=== PATIENT | female | born 1995 | race Caucasian/White ===

== ENCOUNTER 2019-09-10 10:34 | Emergency (ER) | payer OTHER, SELFPAY ==
--- NOTE | ~2019-09-10 | XR_ITS ---
EXAMINATION: XR chest 1V portable INDICATION: Sore throat and fever TECHNIQUE: Portable AP chest at 1103 hours COMPARISON: None available FINDINGS: The lungs are free of acute opacities. There is no pleural effusion or pneumothorax. The ca rdiomediastinal silhouette is normal. The visualized osseous structures are unremarkable. IMPRESSION: 1. No acute cardiopulmonary abnormality. Reviewed, dictated and finalized at location A.
[2019-09-10 10:44] VITALS: BP 119/92; PULSE 132; RESP 19; TEMP 38.3; O2SAT 98
--- NOTE | 2019-09-10 10:45 | ED.FEVER ---
HPI - Fever General Chief Complaint: Fever Stated Complaint: Sore throat,fever Time Seen by Provider: 09/10/19 10:37 History of Present Illness HPI Narrative: Patient is a 24-year-old female who presents to the ER with complaint of fever for the last week. Is been associated with runny nose and intermittent cough. Sometimes she will have some chest discomfort when she coughs but is not persistent. No dyspnea. She has history of recurrent strep throat but has had a tonsillectomy. 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 No known sick contacts and certainly no known COVID-19 positive contacts. Symptoms have not been improving so she opted to come in to have further evaluation performed. Related Data Allergies Allergy/AdvReac Type Severity Reaction Status Date / Time iodine Allergy Mild Anaphylaxis Verified 09/10/19 10:48 Review of Systems Review of Systems: All systems reviewed & are unremarkable except as noted in HPI and below Constitutional: Constitutional: Reports chills, Reports fatigue and Reports fever(s) ENT: Reports sore throat Comments: Rhinorrhea Cardiovascular: Cardiovascular: Reports chest pain and Denies rapid heart rate Respiratory: Respiratory: Denies chest congestion, Reports cough, Denies dyspnea and Denies wheezing Gastrointestinal: Gastrointestinal: Denies abdominal pain, Denies nausea and Denies vomiting Genitourinary: Genitourinary: Denies hematuria, Denies nocturia and Denies dysuria PMFSH Past Medical History Medical History (Updated 09/10/19 @ 13:52 by Henry Acosta MD) Deviated septum No pertinent past medical history Surgical History Surgical History (Updated 09/10/19 @ 13:47 by Henry Acosta MD) No pertinent past surgical history Social History Social History (Updated 09/10/19 @ 13:47 by Henry Acosta MD) Tobacco type: e-cigarettes Gender identity (if verbalized by the patient): Female Exam Narrative: Exam Narrative: GENERAL: Fartigued-appearing, well-nourished, and in no acute distress. HEAD: Normocephalic, atraumatic. ENT: Mucous membranes moist. Uvula midline and nonedematous. Mild pharyngeal erythema. NECK: Supple. CHEST: Clear to auscultation. No respiratory distress. HEART: Tachycardic and regular. Normal peripheral pulses. ABDOMEN: Soft, nontender, nondistended. EXTREMITIES: Normal range of motion. No edema. SKIN: Warm, dry, no rash. NEURO: Alert and oriented x3. 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 No source of infection. Will send the COVID test. Patient where she should receive results in 24 hours and is not to go out into the community until she has been found to be negative. She is aware if she is positive she should senior living in place for the next 14 days. Additionally she has been educated that she should not be going out in public anyways until she is 7 days symptom-free in 3 days without fever. Vital Signs Vital signs: Vital Signs Temperature 100.9 F H 09/10/19 10:44 Pulse Rate 132 H 09/10/19 10:44 Respiratory Rate 19 09/10/19 10:44 Blood Pressure 119/92 H 09/10/19 10:44 Pulse Oximetry 98 09/10/19 10:44 Temperature 100.9 F H 09/10/19 10:44 Pulse Rate 99 09/10/19 12:29 Respiratory Rate 18 09/10/19 12:29 Blood Pressure 128/90 09/10/19 12:29 Pulse Oximetry 98 09/10/19 12:29 MDM - Fever Lab Data Result diagrams: 09/10/19 11:06 09/10/19 11:05 Labs: Lab Results 09/10/19 09/10/19 09/10/19 Range/Units 11:05 11:06 12:26 WBC 13.2 H (4.5-10.0) K/mm3 RBC 4.40 (4.2-5.4) M/mm3 Hgb 12.9 (12.0-15.0) g/dL Hct 37.9 (37.0-47.0) % MCV 86.1 (80-100) fl MCH 29.3 (26-34) pg MCHC 34.0 (32-36) g/dl RDW 12.2 (11.5-14.5) % Plt Count 245 (150-375) k/mm3 MPV 10.2 (7.4-10.4) fl Immature Gran % (Auto) 0.4 (0-0.5) % Neut % (Auto) 79.6 H (45.5-73.
[2019-09-10] MEDS: ACETAMINOPHEN 500 MG TABLET 1000 MG PO (11:08)
[2019-09-10] MEDS: SODIUM CHLORIDE 0.9% IV 1,000 ML 999 ML IV CONT (11:09)
[2019-09-10 11:12] VITALS: BP 118/80; PULSE 103; RESP 14; O2SAT 100
[2019-09-10 11:13] VITALS: O2SAT 100
[2019-09-10 11:16] LABS: Basophils Percent Auto 0.2 % (0.2-1.2); Eosinophils Percent Auto 0.2 % (0-4.4); Hematocrit 37.9 % (37.0-47.0); Hemoglobin 12.9 g/dL (12.0-15.0); Immature Granulocyte Absolute 0.05 K/mm3 (0.00-0.031); Immature Granulocyte Percent A 0.4 % (0-0.5); Lymphocytes Absolute Auto 1.65 K/mm3 (0.9-3.2); Lymphocytes Percent Auto 12.5 % (18.3-44.2); Mean Corpuscular Hemoglobin 29.3 pg (26-34); Mean Corpuscular Volume 86.1 fl (80-100); Mean Platelet Volume 10.2 fl (7.4-10.4); Monocytes Absolute Auto 0.9 K/mm3 (0.1-0.6); Monocytes Percent Auto 7.1 % (2.6-8.5); Neutrophils Absolute Auto 10.5 K/mm3 (1.3-6.7); Neutrophils Percent Auto 79.6 % (45.5-73.1); Platelet Count Result 245 k/mm3 (150-375); Red Cell Distribution Width 12.2 % (11.5-14.5); White Blood Count 13.2 K/mm3 (4.5-10.0)
[2019-09-10 11:54] LABS: Alanine Aminotransferase 10 U/L (4-35); Albumin Level 4.4 g/dL (3.5-5.1); Alkaline Phosphatase 68 U/L (38-126); Aspartate Amino Transferase 22 U/L (14-36); Bilirubin,Total 0.4 mg/dL (0.2-1.3); Blood Urea Nitrogen 6 mg/dL (7-17); Calcium 9.4 mg/dL (8.4-10.2); Carbon Dioxide 20 mmol/L (22-30); Chloride 107 mmol/L (98-107); Estimated CRCL calculation 138 ml/min; Estimated Glomerular Filt Rate > 60; Glucose 99 mg/dL (65-105); Potassium 4.2 mmol/L (3.4-5.0); Sodium 137 mmol/L (137-145)
[2019-09-10 12:29] VITALS: BP 128/90; PULSE 99; RESP 18; O2SAT 98
[2019-09-10 12:35] LABS: Add Urine Microscopic? YES; Appearance Urine Cloudy (Clear); Bacteria Urine Trace /hpf; Bilirubin Urine Negative (Negative); Blood Urine Negative (Negative); Color Urine Straw (Yellow); Glucose Urine UA Negative (Negative); Ketones Urine Negative (Negative); Leukocyte Esterase Ur 2+ LEU/UL (Negative); Mucus Urine Rare /lpf; Nitrate Urine Negative (Negative); Protein Urine Negative (Negative); RBC Urine 21-50 /hpf (0-2); Specific Grav Ur 1.008 (1.001-1.035); Squamous Epithelial Cell Urine Many /hpf (Few); Urobilinogen Urine Negative mg/dL (<2.0)
[2019-09-10 13:48] VITALS: BP 106/68; PULSE 79; RESP 20; O2SAT 99
[2019-09-10 14:05] VITALS: BP 106/68; PULSE 98; RESP 19; O2SAT 100
[2019-09-11 13:23] LABS: SARS-CoV-2 RNA PCR Negative
== END 2019-09-10 14:07 | disposition home or self-care (01) ==
PROVIDERS: Emergency Provider Emergency Medicine
DX: B34.9 Viral infection, unspecified (principal); Z20.828 Contact with and (suspected) exposure to other viral communicable diseases; F17.290 Nicotine dependence, other tobacco product, uncomplicated
CPT/HCPCS: 36415; 71045; 80053; 81001; 85025; 87081; 87635; 87804; 87880; 96360; 99283; A9270; C9803; J7030; U0003

== ENCOUNTER 2021-09-20 12:16 | Emergency (ER) | payer OTHER, SELFPAY ==
[2021-09-20 12:37] VITALS: BP 129/78; PULSE 101; RESP 16; TEMP 37.7; O2SAT 99
--- NOTE | 2021-09-20 13:09 | ED.URI ---
HPI - URI/Sore Throat General Chief Complaint: Upper Respiratory Infection Stated Complaint: Chest Congestion/Shortness of Breath Time Seen by Provider: 09/20/21 13:20 Source: patient, RN notes reviewed and old records reviewed Mode of arrival: ambulatory Limitations: no limitations History of Present Illness HPI Narrative: 26-year-old female who presents to [facility] with complaints of cough with congestion, nasal drainage, right ear feels clogged,up to 101.2F fevers, and right ear pain for the past week duration. She reports that she has been taking some ibuprofen and cough DM syrup. Patient has taken home COVID tests which were negative. Patient reports that she has had COVID vaccination and Booster. Patient denies any acute shortness of breath no tachypnea noted or accessory muscle use, SAO2 99% on room air. MD elicited complaint: fever, cough, rhinorrhea, nasal congestion and other (Ear discomfort) Pertinent past history: other (Ear and throat problems) Onset (ago): week(s) (1) Consistency: constant Related Data Home Medications Medication Instructions Recorded Confirmed escitalopram oxalate 20 mg PO DAILY 09/20/21 09/20/21 famotidine 40 mg PO BID 09/20/21 09/20/21 testosterone cypionate 200 mg IM [id number] 09/20/21 09/20/21 Allergies Allergy/AdvReac Type Severity Reaction Status Date / Time iodine Allergy Mild Anaphylaxis Verified 09/10/19 10:48 Review of Systems Review of Systems: CONSTITUTIONAL: Reports fever, chills, or sweats. EYES: Denies visual changes, redness, or discharge. ENT: Positive for rhinorrhea, congestion, sore throat, right otalgia, some sinus pressure stated. CARDIOVASCULAR: Denies chest pain, palpitations, or edema. RESPIRATORY: Positive for cough denies dyspnea. GASTROINTESTINAL: Denies abdominal pain, nausea, vomiting, or diarrhea. GENITOURINARY: Denies dysuria or hematuria. SKIN: Denies rash or itching. MUSCULOSKELETAL: Denies back pain, joint pain, or myalgia. NEUROLOGIC: Denies headache, numbness, or weakness. PSYCHIATRIC: Positive for anxiety or depression. All systems reviewed & are unremarkable except as noted in HPI and below PMFSH Past Medical History Medical History (Updated 09/21/21 @ 10:05 by Kezia Mac NP) Anxiety and depression Deviated septum Hx of migraines Kidney infection RSV (respiratory syncytial virus pneumonia) Surgical History Surgical History (Updated 09/21/21 @ 10:02 by Kezia Mac NP) History of tonsillectomy Social History Social History (Updated 09/21/21 @ 10:05 by Kezia Mac NP) Smoking packs per day: 0.3 Smoking cigarettes per day: 6.0 Smoking status: Current every day smoker Tobacco type: cigarettes and e-cigarettes/vaping Alcohol intake: current Alcohol use details: social Substance use: unknown Living arrangements: with family Gender identity (if verbalized by the patient): Female Comments At time of signature, agree with nursing past medical, surgical, social and family history. There is no relevant family history pertinent to the presenting complaint Exam Narrative: GENERAL: Well-appearing, well-nourished, and in no acute distress. HEAD: Normocephalic, atraumatic. EYES: PERRLA and EOMI. ENT: Nares red with clear rhinorrhea no epistaxis. Mucous membranes moist.TM's normal with dull light reflex throat red no lesions or exudates, no tonsils present,post nasal drainage present. NECK: Supple.no lymphadenopathy CHEST: Faint scattered wheezes noted on auscultation. No respiratory distress.Cough SAO2 99% on room air HEART: Regular rate and rhythm. No murmur heard. Normal peripheral pulses. ABDOMEN: Soft, nontender, nondistended, normal active bowel sounds. EXTREMITIES: Normal range of motion. No edema. SKIN: Warm, dry, no rash. NEURO: No focal deficits. Alert and oriented x3. Course Course Level of Care: Express Care Visit Vital Signs Vital signs: Vital Signs Temperature 37.7 C H 09/20/21 12:
== END 2021-09-20 13:45 | disposition home or self-care (01) ==
PROVIDERS: Emergency Provider Registered Nurse
DX: J40 Bronchitis, not specified as acute or chronic (principal); F17.210 Nicotine dependence, cigarettes, uncomplicated
CPT/HCPCS: 87804; 99213; G0463

== ENCOUNTER 2022-08-04 10:53 | Emergency (ER) | payer OTHER, SELFPAY ==
[2022-08-04 10:57] VITALS: BP 146/80; PULSE 112; RESP 20; TEMP 37.9; O2SAT 96
--- NOTE | 2022-08-04 11:34 | ED.URI ---
HPI - URI/Sore Throat General Chief Complaint: Upper Respiratory Infection Stated Complaint: Fever/Cough/Headache Time Seen by Provider: 08/04/22 11:25 Source: patient, RN notes reviewed and old records reviewed Mode of arrival: ambulatory Limitations: no limitations History of Present Illness HPI Narrative: 26 [facility] of acute cough for the past 5-6 days with increase cough for the past 2-3 days some shortness of breath with cough and has noted some wheezing especially at night. Patient has been taking DayQuil and NyQuil and has been using cough drops with no resolution or improvement in her symptoms. Patient has had fevers up to 102.6F. Patient reports that she took 2 home COVID tests which were negative. MD elicited complaint: fever, cough, rhinorrhea, nasal congestion and other (Headache) Pertinent past history: other (bronchitis) Onset (ago): day(s) (5-6 days) Pain scale (0-10): 4 Able to tolerate fluids by mouth: Yes Treatments prior to arrival: other (DayQuil NyQuil cough drops) Related Data Home Medications Medication Instructions Recorded Confirmed escitalopram oxalate 20 mg tablet 20 mg PO DAILY 09/20/21 08/04/22 famotidine 40 mg tablet 40 mg PO BID 09/20/21 08/04/22 testosterone cypionate 200 mg/mL 200 mg IM [id number] 09/20/21 08/04/22 intramuscular oil Allergies Allergy/AdvReac Type Severity Reaction Status Date / Time iodine Allergy Mild Anaphylaxis Verified 09/10/19 10:48 Review of Systems Review of Systems: CONSTITUTIONAL: Reports malaise, chills, sweats, or fever. EYES: Denies visual changes, redness, or discharge. ENT: Reports rhinorrhea, congestion, sinus pain, no otalgia or sore throat. CARDIOVASCULAR: Denies chest pain, palpitations, or edema. RESPIRATORY: Reports cough.? dyspnea with cough and reported wheezing. GASTROINTESTINAL: Denies abdominal pain, nausea, vomiting, diarrhea SKIN: Denies rash or itching. MUSCULOSKELETAL: Denies myalgia. NEUROLOGIC:Reports headache. All systems reviewed & are unremarkable except as noted in HPI and below PMFSH Past Medical History Medical History (Updated 08/05/22 @ 00:02 by Background Daemon) Anxiety and depression Deviated septum Hx of migraines Kidney infection RSV (respiratory syncytial virus pneumonia) Surgical History Surgical History (Updated 09/21/21 @ 10:02 by Kezia Mac NP) History of tonsillectomy Social History Social History (Updated 08/06/22 @ 09:16 by Kezia Mac NP) Smoking packs per day: 0.3 Smoking cigarettes per day: 6.0 Smoking status: Current every day smoker Tobacco type: cigarettes and e-cigarettes/vaping Alcohol intake: current Alcohol use details: social Substance use type: does not use Living arrangements: with family Gender identity (if verbalized by the patient): Female Comments At time of signature, agree with nursing past medical, surgical, social and family history. There is no relevant family history pertinent to the presenting complaint Exam Narrative: GENERAL: Well-appearing, well-nourished, and in no acute distress. HEAD: Normocephalic EYES: PERRLA, conjunctivae clear ENT: Nares clear, turbinates edematous and erythematous, clear discharge. Mucous membranes moist. TM pearly haynes with dull light reflex bilaterally; no tragal tenderness. Oropharynx erythematous without lesions. Tonsils not present and throat without exudate, no drooling, no hoarseness, no trismus, uvula midline.post nasal drainage. NECK: Supple. No lymphadenopathy CHEST: Faint wheezes upper lobes, breath sounds equal. positive wheezing, no rhonchi, rales, or stridor. No respiratory distress, speaks in full sentences.cough SAO2 96% on room air HEART: Regular rate and rhythm. No murmur heard. SKIN: Warm, dry, no rash. NEURO: Alert and oriented x3. PSYCH: Normal mood and affect Course Course Emergency Course: Patient is aw
== END 2022-08-04 11:50 | disposition home or self-care (01) ==
PROVIDERS: Emergency Provider Registered Nurse; PCP Emergency Medicine
DX: J40 Bronchitis, not specified as acute or chronic (principal); F17.210 Nicotine dependence, cigarettes, uncomplicated; F17.290 Nicotine dependence, other tobacco product, uncomplicated
CPT/HCPCS: 99213; G0463

== ENCOUNTER 2023-02-06 10:51 | Outpatient (CLI) | payer OTHER, SELFPAY ==
[2023-02-06 13:29] LABS: Basophils Percent Auto 0.3 % (0.2-1.2); Eosinophils Absolute Auto 0.2 K/mm3 (0-0.3); Eosinophils Percent Auto 1.6 % (0-4.4); Hematocrit 43.3 % (37.0-47.0); Hemoglobin 14.6 g/dL (12.0-15.0); Immature Granulocyte Absolute 0.03 K/mm3 (0.00-0.031); Immature Granulocyte Percent A 0.3 % (0-0.5); Lymphocytes Absolute Auto 2.96 K/mm3 (0.9-3.2); Lymphocytes Percent Auto 29.7 % (18.3-44.2); Mean Corpuscular HGB Conc 33.7 g/dl (32-36); Mean Corpuscular Hemoglobin 29.2 pg (26-34); Mean Corpuscular Volume 86.6 fl (80-100); Mean Platelet Volume 10.5 fl (7.4-10.4); Monocytes Absolute Auto 0.5 K/mm3 (0.1-0.6); Monocytes Percent Auto 5.1 % (2.6-8.5); Neutrophils Absolute Auto 6.3 K/mm3 (1.3-6.7); Platelet Count Result 310 k/mm3 (150-375); Red Cell Distribution Width 13.2 % (11.5-14.5)
[2023-02-06 13:55] LABS: Alanine Aminotransferase 22 U/L (6-35); Albumin Level 4.3 g/dL (3.5-5.1); Alkaline Phosphatase 61 U/L (38-126); Anion Gap 10 mmol/L (8-16); Aspartate Amino Transferase 40 U/L (14-36); Bilirubin,Total 0.6 mg/dL (0.2-1.3); Blood Urea Nitrogen 10 mg/dL (7-17); Calcium 9.5 mg/dL (8.4-10.2); Carbon Dioxide 25 mmol/L (22-30); Chloride 104 mmol/L (98-107); Cholesterol 208 mg/dL (0-200); Estimated Glomerular Filt Rate > 60; Glucose 108 mg/dL (65-110); HDL Direct 34 mg/dL; Potassium 4.2 mmol/L (3.4-5.0); Sodium 139 mmol/L (137-145); Triglycerides 289 mg/dL (<150)
[2023-02-06 14:06] LABS: LDL Cholesterol Direct 125 mg/dL
[2023-02-06 20:41] LABS: Hemoglobin A1C 5.4 % (<5.7)
[2023-02-09 13:03] LABS: Testosterone Total 493 ng/dL (2-45)
== END 2023-02-06 10:52 | disposition home or self-care (01) ==
LOC: ANHGOSHLAB 10:53
PROVIDERS: PCP Emergency Medicine; Visit Provider Emergency Medicine
DX: Z13.1 Encounter for screening for diabetes mellitus (principal); Z13.220 Encounter for screening for lipoid disorders; Z79.890 Hormone replacement therapy
CPT/HCPCS: 36415; 80053; 80061; 83036; 84403; 85025

== ENCOUNTER 2023-08-16 11:49 | Outpatient (CLI) | payer OTHER, SELFPAY ==
[2023-08-16 13:34] LABS: Basophils Percent Auto 0.4 % (0.2-1.2); Eosinophils Absolute Auto 0.2 K/mm3 (0-0.3); Eosinophils Percent Auto 2.6 % (0-4.4); Hematocrit 42.8 % (37.0-47.0); Hemoglobin 13.8 g/dL (12.0-15.0); Immature Granulocyte Absolute 0.04 K/mm3 (0.00-0.031); Immature Granulocyte Percent A 0.4 % (0-0.5); Lymphocytes Absolute Auto 3.07 K/mm3 (0.9-3.2); Lymphocytes Percent Auto 33.1 % (18.3-44.2); Mean Corpuscular HGB Conc 32.2 g/dl (32-36); Mean Corpuscular Volume 89.9 fl (80-100); Mean Platelet Volume 10.3 fl (7.4-10.4); Monocytes Absolute Auto 0.5 K/mm3 (0.1-0.6); Monocytes Percent Auto 5.5 % (2.6-8.5); Neutrophils Absolute Auto 5.4 K/mm3 (1.3-6.7); Platelet Count Result 365 k/mm3 (150-375); Red Blood Count 4.76 M/mm3 (4.2-5.4); Red Cell Distribution Width 12.8 % (11.5-14.5); White Blood Count 9.3 K/mm3 (4.5-10.0)
[2023-08-16 13:43] LABS: Alanine Aminotransferase 23 U/L (6-35); Albumin Level 4.6 g/dL (3.5-5.1); Alkaline Phosphatase 62 U/L (38-126); Anion Gap 9 mmol/L (4-12); Aspartate Amino Transferase 65 U/L (14-36); Bilirubin,Total 0.5 mg/dL (0.2-1.3); Blood Urea Nitrogen 10 mg/dL (7-17); Calcium 9.8 mg/dL (8.4-10.2); Carbon Dioxide 26 mmol/L (22-30); Chloride 104 mmol/L (98-107); Cholesterol 169 mg/dL (0-200); Estimated Glomerular Filt Rate > 60; Glucose 99 mg/dL (65-110); HDL Direct 34 mg/dL; Potassium 4.2 mmol/L (3.4-5.0); Sodium 139 mmol/L (137-145); Triglycerides 171 mg/dL (<150)
[2023-08-16 13:54] LABS: LDL Cholesterol Direct 111 mg/dL
[2023-08-16 15:26] LABS: Hemoglobin A1C 5.2 % (<5.7)
[2023-08-19 23:44] LABS: Testosterone Total 254 ng/dL (2-45)
== END 2023-08-16 11:50 | disposition home or self-care (01) ==
LOC: ANHGOSHLAB 11:50
PROVIDERS: PCP Emergency Medicine; Visit Provider Emergency Medicine
DX: E78.5 Hyperlipidemia, unspecified (principal); F64.0 Transsexualism; I10 Essential (primary) hypertension; Z13.1 Encounter for screening for diabetes mellitus
CPT/HCPCS: 36415; 80053; 80061; 83036; 84403; 85025

== ENCOUNTER 2024-08-19 09:16 | Emergency (ER) | payer OTHER, SELFPAY ==
[2024-08-19 09:21] VITALS: BP 138/75; PULSE 90; RESP 16; TEMP 36.5; O2SAT 99
--- NOTE | 2024-08-19 09:26 | ED.GENADULT ---
HPI - General Adult General Chief complaint: Skin/Abscess/Foreign Body Stated complaint: burning sensation on lips Source: patient Mode of arrival: ambulatory Limitations: no limitations History of Present Illness HPI narrative: 28-year-old female with hx HTN presented for complaint of upper and lower lips itching and swelling. Onset yesterday. Patient says she was told by her mother she is allergic to mangoes , which she ate yesterday. Denies tongue, or throat swelling, itching, shortness of breath or wheezing, dizziness, nausea, vomiting or abdominal pain. Denies changes to soap, detergent, lotion, or any other exposures. No one else in the house or any contacts with similar symptoms. Took Benadryl last night and applied calamine lotion. Says she contacted her PCP who advised her to be seen to get Rx steroid cream. Pt also taking lisinopril. Related Data Allergies Allergy/AdvReac Type Severity Reaction Status Date / Time shellfish derived Allergy Severe Anaphylaxis Verified 08/19/24 09:25 iodine Allergy Mild Anaphylaxis Verified 08/19/24 09:25 bruna Allergy Unknown Unknown Verified 08/19/24 09:25 Review of Systems Review of Systems: CONSTITUTIONAL: Denies body aches, fever, chills, or sweats. EYES: Denies visual changes, redness, or discharge. ENT: reports itchy lips Denies rhinorrhea, congestion CARDIOVASCULAR: Denies chest pain, palpitations, or edema. RESPIRATORY: Denies cough or dyspnea. GASTROINTESTINAL: Denies abdominal pain, nausea, vomiting, or diarrhea. SKIN: denies rash MUSCULOSKELETAL: Denies back pain, joint pain, or myalgia. NEUROLOGIC: Denies headache, numbness, tingling, or weakness. [facility] Past Medical History Medical History Anxiety and depression Deviated septum Hx of migraines Kidney infection RSV (respiratory syncytial virus pneumonia) Surgical History Surgical History History of tonsillectomy Social History Social History Smoking packs per day: 0.3 Smoking cigarettes per day: 6.0 Smoking status: Current every day smoker Tobacco type: cigarettes and e-cigarettes/vaping Alcohol intake: current Drinks per week: 3 Alcohol use details: social Substance use: never Lack of Transportation: No Lack of Food: Never True Current Housing: I Have Housing Concerned About Future Housing: No Difficulty Paying Gas/Electric Bills: No Difficulty Paying for Meds: No Currently Unemployed: No Education: High School Diploma/GED Difficulty w/ Childcare or Family Care: No Living arrangements: with family Gender identity (if verbalized by the patient): Female Comments At time of signature, I have reviewed and agree with nursing past medical, surgical, social and family history unless otherwise noted. Please see nursing chart for further information. There is no relevant family history pertinent to the presenting complaint Exam Narrative: GENERAL: Well-appearing HEAD: Normocephalic, atraumatic. EYES: conjunctivae clear, and EOMI. ENT: Mucous membranes moist. Oropharynx without edema, erythema or lesions. Tonsils absent. Minimal upper lip swelling when compared to photo. NECK: Supple. No lymphadenopathy CHEST: Clear to auscultation. HEART: Regular rate and rhythm. SKIN: Warm, dry. NEURO: Alert and oriented x3. Course Course Emergency Course: Patient is aware of diagnosis, understands and agrees to treatment plan. Anticipatory guidance given. Patient agrees to follow-up as directed and is aware of reasons to seek care at the emergency department. Portions of this record may have been created with voice recognition software Level of Care: Express Care Visit Vital Signs Vital signs: Vital Signs Temperature 97.7 F 08/19/24 09:21 Pulse Rate 90 08/19/24 09:21 Respiratory Rate 16 08/19/24 09:21 Blood Pressure 138/75 08/19/24 09:21 Pulse Oximetry 99 08/19/24 09:21 Oxygen Delivery Room Air 08/19/24 09:21 Temperature 97.7 F 08/19/24 09:21 Pulse Rate 90 08/19/24 09:21 Respiratory Rate 16 08/19/24 09:21 Blood Pressure 138/75 08/19/24 09:21 Pulse Oximetry 99 08/19/24 09:21 Oxygen Delivery Room Air 08/19/24 09:21 Reviewed Medical Decision Making MDM Narrative Medical decision making narrative: Discussed physical exam findings; mild upper lip swelling. Discussed at length s/s danger triangle and importance of close monitoring. Advised supportive measures and signs/symptoms to go to the ER. Pt is appropriate for outpt treatment and f/u. Differential Diagnosis Differential Diagnosis: Viral exanthema, contact dermatitis, allergic dermatitis, eczema, urticaria, insect bites, impetigo, tinea, folliculitis angioedema Vital Signs Vital Signs: Vital Signs Temperature 97.7 F 08/19/24 09:21 Pulse Rate 90 08/19/24 09:21 Respiratory Rate 16 08/19/24 09:21 Blood Pressure 138/75 08/19/24 09:21 Pulse Oximetry 99 08/19/24 09:21 Oxygen Delivery Room Air 08/19/24 09:21 Temperature 97.7 F 08/19/24 09:21 Pulse Rate 90 08/19/24 09:21 Respiratory Rate 16 08/19/24 09:21 Blood Pressure 138/75 08/19/24 09:21 Pulse Oximetry 99 08/19/24 09:21 Oxygen Delivery Room Air 08/19/24 09:21 Discharge Plan Discharge Clinical Impression: Allergic reaction Patient Disposition: Home, Self-Care Condition: Stable Instructions: Antibiotic Form, Angioedema (ED) Additional Instructions: Take steroids as directed, continue current Pepcid (40mg) Benadryl every 8 hours as needed. If it makes you too drowsy, take Zyrtec for 7 days. Cool compresses to the sites of itching, avoid hot water. Avoid scratching to reduce the risk of infection Follow up with your primary care provider as needed Go to the ER for worsening symptoms or concerns (lip, tongue, throat swelling/itching, trouble breathing etc) -- we discussed the danger triangle and your use of lisinopril. Patient Language: Korean Prescriptions: New cetirizine [Zyrtec] 10 mg tablet 10 mg PO DAILY PRN (Reason: congestion) Qty: 10 0RF methylprednisolone [Medrol (Marcell)] 4 mg tablets,dose pack See Rx Instructions .ROUTE .COMPLEX Qty: 21 0RF Rx Instructions: orally per package directions No Action famotidine 40 mg tablet 40 mg PO BID Qty: 180 1RF lisinopril 10 mg tablet 15 mg PO DAILY Qty: 135 0RF Follow-up/Referrals: Helen,Ange Cardenas APN [Primary Care Provider] - Time of Disposition: 09:37
--- OUTSIDE RECORDS SUMMARY | 2024-08-19 09:58 | XMS_ITS | Patient Health Record ---
Author Organization [facility] Address [address] [place] [address] Care Team Providers Care Electronic Device Repairer Name Role Phone Alexis Mistry Primary Care Provider [phone] Allergies No Known Allergies Reason For Referral No Information Medications Medication SIG (Take, Route, Frequency, Duration) Notes Start Date End Date Status Escitalopram Oxalate 20 MG TAKE 1 TABLET BY MOUTH EVERY DAY for 90 Active Testosterone 25 MG/2.5GM (1%) 1 packet to skin in the morning to shoulder, upper arms or abdomen Transdermal Once a day for 90 days 03/13/2021 Active Needle (Disp) 20G X 1 as directed Injected every 2 weeks for 90 days to draw up testosterone. Can sub any needle. 03/14/2021 Active Escitalopram Oxalate 10 MG 1 tablet Orally Twice a day for 30 day(s) Active Famotidine 40 MG 1 tablet Orally every 12 hrs for 90 days increase in frequency Active Testosterone Cypionate 200 MG/ML 0.5 ml Intramuscular every 2 weeks for 90 days please give appropriate syringes and needles for this injection. Active Omeprazole 20 MG 1 capsule 30 minutes before morning meal Orally Twice a day for 30 day(s) 10/30/2021 Active Syringe (Disposable) 1 ML as directed Injected every 2 weeks for 90 days can sub any syringe 03/14/2021 Active BD Luer-Shahzad Syringe 23G X 1 3 ML USE WITH TESTOSTERONE FOR INJECTION for 84 Active Needle (Disp) 22G X 1-1/2 as directed Injected every 2 weeks for 90 days to inject testosterone. Can sub any needle. 03/14/2021 Active Immunizations Vaccine Route Administration Date Status Comme nts Flulaval IM Intramuscular 03/13/2021 Administered Hep A, adult (Vaqta, Havrix) IM Intramuscular 07/31/2021 Administered Social History Tobacco Use: Social History Observation Description Date Details (start date - stop date) Current Smoker NA - NA Sex Assigned At : Social History Observation Description Sex Assigned At Female Tobacco Use/Smoking Question Answer Notes Smoking Status: current smoker Are you interested in quitting? Not ready to jordon t How soon after you wake up do you smoke your fir st cigarette? within 5 minutes How often do you smoke cigarettes? every day Alcohol Screen (Audit-C) Question Answer Notes Did you have a drink contain ing alcohol in the past year? Yes How often did you have 6 or more drinks on one occasion in the past year? Less than monthly (1 point) How often did you have a dri nk containing alcohol in the past year? 2 to 4 times a month (2 points) Tobacco use other than smoking: Question Answer Notes Are you an other tobacco user? No Problems Problem Type SNOMED Code ICD Code Onset Dates Problem Status W/U Status Risk Notes Problem 763682288 GERD without esophagitis (K21.9) Active confirmed Problem 96312630 Other iron deficiency anemia (D50.8) Active confirmed Problem 02079905 ISABEL (generalized anxiety disorder) (F41.1) Active confirmed Problem 932830179 Food allergy (Z91.018) Active confirmed Plan Of Treatment No Information Insurance Providers Payer Name Payer Address Payer Phone Subscriber Number Group Number Insured Name Patient Relationship to Insured Coverage Start Date Coverage End Date [address] [id number] Self - patient is the insured Medical (General) History Medical History History ICD Code Colonoscopy: No DEXA (Bone Density) Scan: No Mammogram: No Pap: 02/01/2021 AIDS/HIV: No alcohol abuse: No acid reflux: Yes allergies, food: Yes allergies, seasonal: Yes anemia: Yes arthritis: No asthma: No attention deficit disorder: No anxiety: Yes bipolar disorder: No bladder infections, chronic: No : No chronic diarrhea: No cough, chronic: No dementia: No depression: No deep vein thrombosis: No diabetes mellitus: No drug abuse: No eating disorder: No gout: No insomnia: No inflammatory bowel disease: No myocardial infarction: No neuropathy: No panic attacks: No osteoporosis: No pulmonary embolism: No rheumatoid arthritis: No seizures: No sleep apnea: No stroke: No white coat hypertension: No Other not mentioned: Heart murmur
--- OUTSIDE RECORDS SUMMARY | 2024-08-19 09:58 | XMS_ITS | Clinical Summary ---
Author Organization [facility] Address [address] [place] [address] Phone Care Team Providers Care Local Sales Manager Name Role Phone Provider, None Primary Care Provider Unavailabl e Allergies Active Allergy Reactions Criticality Noted Date Comments Iodinated Contrast Media Anaphylaxis 01/05/2019 Medications Etonogestrel (NEXPLANON SC) by Implant route. Active dicyclomine (BENTYL) 20 MG Tablet Take 1 Tab by mouth every 6 hours as needed (Abdominal cramping or pain). 30 Tab 01/05/2019 Active Social History Tobacco Use Types Packs/Day Years Used Date Smoking Tobacco: Never Smokeless Tobacco: Never Alcohol Use Standard Drinks/Week Comments Yes 0 (1 standard drink = 0.6 oz pur e alcohol) socially Comments No Sex and Gender Information Value Date Recorded Sex Assigned at Not on file Legal Sex Female 7:41 PM CDT Gender Identity Not on file Sexual Orientation Not on file Last Filed Vital Signs Vital Sign Reading Time Taken Comments Blood Pressure 124/79 01/05/2019 9:18 PM CDT Pulse 80 01/05/2019 9:18 PM CDT Temperature 36.5 C (97.7 F) 01/05/2019 6:30 PM CDT Respiratory Rate 17 01/05/2019 9:18 PM CDT Oxygen Saturation 97% 01/05/2019 9:18 PM CDT Inhaled Oxygen Concentration - - Weight 68 kg (150 lb) 01/05/2019 6:30 PM CDT Height 157.5 cm (5' 2 ) 01/05/2019 6:30 PM CDT Body Mass Index 27.44 01/05/2019 6:30 PM CDT Plan of Treatment Health Maintenance Due Date Last Done Comments Hepatitis C Virus (HCV) Screening 1996 Pap Smear 2017 Influenza Immunization (#1) 2024 SARS-COV-2 Immunization ( season) 2024 06/05/2021, 09/14/2020, 08/10/2020 Respiratory Syncytial Virus (RSV) Immunization (Adult) (1 - 1-dose 75+ series) 08/21/2071 Hepatitis B Immunization Completed 997, 1996, 1996, Additional history exists DTaP/Tdap/Td Immunization Discontinued 2010, 02/11/2002, 11/10/1997, Additional history exists Human Papillomavirus (HPV) Immunization Discontinued 03/05/2011, 04/05/2009 Meningococcal Immunization (ACWY) Aged Out 03/05/2011 No longer eligible based on patient's age to complete this topic TdaP Immunization Completed 03/05/2011 Pneumococcal Immunization Combined Aged Out No longer eligible based on patient's age to complete this topic Rotavirus Immunization Aged Out No lo nger eligible based on patient's age to complete this topic Insurance Care Teams Local Sales Manager Relationship Specialty Start Date End Date Provider, None [place] PCP - General 01/05/19
--- OUTSIDE RECORDS SUMMARY | 2024-08-19 09:58 | XMS_ITS | Clinical Summary ---
Author Organization [facility] Address [address] [place] [address] Care Team Providers Care Telephonic Rn Name Role Phone Helen, Ange Neal NP Primary Care Provider [phone] Allergies Active Allergy Reactions Criticality Noted Date Comments Iodine Anaphylaxis High Medications traMADol (ULTRAM) 50 mg tablet Take 1 tablet every 6 hours as needed for pain. 40 tablet 8 Active Additional Information Patient not taking.Reported on 01/06/2019 cyclobenzaprine (FLEXERIL) 10 mg tablet Take 0.5 tablets (5 mg total) by mouth 3 (three) times a day as needed for muscle spasms. 6 tablet 8 Active Additional Information Patient not taking.Reported on 01/06/2019 naproxen (NAPROSYN) 500 mg tablet Take 1 tablet (500 mg total) by mouth 2 (two) times a day with meals. 20 tablet 8 Active Additional Information Patient not taking.Reported on 01/06/2019 etonogestrel (NEXPLANON) 68 mg implant by Implant route. Active dicyclomine (BENTYL) 20 mg tablet Take 20 mg by mouth every 6 (six) hours as needed 9 Active medroxyPROGESTE Trey (PROVERA) 10 mg tablet TK 1 T PO QD 0 9 Active phenazopyridine (PYRIDIUM) 200 mg tablet Take 1 tablet (200 mg total) by mouth 3 (three) times a day 6 tablet 9 Active Active Problems Problem Noted Date Diagnosed Date Acute maxillary sinusitis 11/10/2015 Overview (08/23/2016): Acute maxillary sinusitis, recurrence not specified Nausea and vomiting 11/10/2015 Overview (08/23/2016): Nausea and vomiting in adult Surgical History Surgery Date Site/Laterality Comments TONSILLECTOMY 2004 Tonsillectomy Medical History Medical History Date Comments Asthma Asthma Family History Medical History Relation Name Comments Hypertension Other Family history of Hypertension; Relation Name Status Comments Other Social History Tobacco Use Types Packs/Day Years Used Date Smoking Tobacco: Every Day Cigarettes Smokeless Tobacco: Never Alcohol Use Standard Drinks/Week Comments Yes 0 (1 standard drink = 0.6 oz pur e alcohol) Comments No Sex and Gender Information Value Date Recorded Sex Assigned at Not on file Legal Sex Female 3:11 AM TIME CHECKER Gender Identity Not on file Sexual Orientation Not on file Obstetrics History Last Filed Vital Signs Vital Sign Reading Time Taken Comments Blood Pressure 112/70 01/19/2021 7:24 PM CDT Pulse 76 01/19/2021 7:24 PM CDT Temperature 36.8 C (98.2 F) 01/19/2021 7:24 PM CDT Respiratory Rate 17 01/19/2021 7:24 PM CDT Oxygen Saturation 98% 01/19/2021 7:24 PM CDT Inhaled Oxygen Concentration - - Weight 72.6 kg (160 lb) 04/04/2019 10:47 AM TIME CHECKER Height 157.5 cm (5' 2 ) 04/04/2019 10:47 AM TIME CHECKER Body Mass Index 29.26 04/04/2019 10:47 AM TIME CHECKER Plan of Treatment Health Maintenance Due Date Last Done Comments Cervical Cancer Screening 1996 Depression Screening 1996 Hepatitis C Screening 1996 Regular Well Visit/Exam 18-64 2014 Pneumococcal vaccine <65 (1 of 2 - PCV) 08/21/2015 DTaP/Tdap/Td Vaccine (7 - Td or Tdap) 03/05/2021 03/05/2011, 02/11/2002, 11/10/1997, Additional history exists Influenza Vaccine (#1) 2024 03/13/2021 Hepatitis B Screening Completed 03/02/1997 , 03/02/1997, 03/02/1997, Additional history exists Varicella Vaccines Completed 04/05/2009, 06/10/1998 HPV Vaccines Completed 03/05/2011, 04/05/2009 Insurance [facility] [place] [address] [facility] Care Teams Telephonic Rn Relationship Specialty Start Date End Date Ange Cervantes NP [address] [place] [address] PCP - General Nurse Practitioner 07/15/24
--- OUTSIDE RECORDS SUMMARY | 2024-08-19 09:58 | XMS_ITS | Clinical Summary ---
Author Organization [email or web address] Address [address] [place] [address] Care Team Providers Care Cognos Developer Name Role Phone Unavailable Primary Care Provider Unavailabl e Source Comments [email or web address],non-owned Affiliates and Associated Physician Practices is amultiple site organization consisting of ambulatory clinics and hospital sitesin [place], [place], [place] and [place]. This disclosure is being madepursuant to the Care Everywhere program and may not contain all information available regarding this patient. Last updated 18.[email or web address] Social History Tobacco Use Types Packs/Day Years Used Date Smoking Tobacco: Never Assessed Sex and Gender Information Value Date Recorded Sex Assigned at Not on file Gender Identity Not on file Sexual Orientation Not on file Plan of Treatment Health Maintenance Due Date Last Done Comments PAP SMEAR 1996 HIV SCREENING 08/21/2011 HEPATITIS C SCREENING 08/16/2014 DTAP/TDAP/TD VACCINES (1 - Tdap) 08/21/2015 HEPATITIS B VACCINE (1 of 3 - 19+ 3-dose series) 08/21/2015 COVID-19 VACCINE ( - 2023-2 5 season) 2024 INFLUENZA VACCINE (#1) 2024 DEPRESSION SCREENING 05/20/2024 ZOSTER VACCINE (1 of 2) 2046 HIB VACCINE Aged Out No longer eligi ble based on patient's age to complete this topic HPV VACCINE Aged Out No longer eligi ble based on patient's age to complete this topic MENINGOCOCCAL (Group B) VACC INE SHARED DECISION-MAKING Aged Out No longer eligibl e based on patient's age to complete this topic MENINGOCOCCAL GROUPS A/C/Y/W VACCINE Aged Out No longer eligible b ased on patient's age to complete this topic PNEUMOCOCCAL VACCINE Aged Out No long er eligible based on patient's age to complete this topic
--- OUTSIDE RECORDS SUMMARY | 2024-08-19 09:58 | XMS_ITS | Referral Summary ---
Author Organization [facility] Address [address] [place] [address] Care Team Providers Care Shipping Support Name Role Phone Helen, Ange Neal NP Primary Care Provider Allergies Active Allergy Reactions Criticality Noted Date [...] Overview (08/23/2016): Nausea and vomiting in adult Social History Tobacco Use Types Packs/Day Years Used Date Smoking Tobacco: Every Day Cigarettes Smokeless Tobacco: Never Alcohol Use Standard Drinks/Week Comments Yes 0 (1 standard drink = 0.6 oz pur e alcohol) Comments No Sex and Gender Information Value Date Recorded Sex Assigned at Not on file Legal Sex Female 3:11 AM TOURS HOSTESS Gender Identity Not on file Sexual Orientation [...] 72.6 kg (160 lb) 04/04/2019 10:47 AM TOURS HOSTESS Height 157.5 cm (5' 2 ) 04/04/2019 10:47 AM TOURS HOSTESS Body Mass Index 29.26 04/04/2019 10:47 AM TOURS HOSTESS Plan of Treatment Not on file [place] [address] [facility] Care Teams Shipping Support Relationship Specialty Start Date End Date Helen, Ange Neal NP [address] [place] [address] PCP - General Nurse Practitioner 07/15/24
== END 2024-08-19 09:39 | disposition home or self-care (01) ==
PROVIDERS: Emergency Provider Nurse Practitioner Family; PCP Nurse Practitioner Family
DX: T78.40XA Allergy, unspecified, initial encounter (principal); I10 Essential (primary) hypertension; F17.210 Nicotine dependence, cigarettes, uncomplicated; F17.290 Nicotine dependence, other tobacco product, uncomplicated
CPT/HCPCS: 99213; G0463